=== PATIENT | male | born 1930 | race Caucasian/White ===

== ENCOUNTER 2016-10-30 21:23 | Observation (INO) | payer OTHER ==
--- NOTE | 2016-10-30 21:35 | CPEKG ---
Heart Rate: 76 RR Interval: 789 P-R Interval: 212 QRSD Interval: 156 QT Interval: 424 QTC Interval: 477 P [place]: 53 QRS [place]: -79 T Wave [place]: 91 EKG Severity - ABNORMAL ECG - EKG Impression: ATRIAL-VENTRICULAR DUAL-PACED COMPLEXES Electronically Signed By: Taiwo Houser 30-Oct-2016 21:35:19
--- NOTE | 2016-10-30 21:35 | EDPHY ---
H & P HPI/ROS: CHIEF COMPLAINT: Chest pain HISTORY OF PRESENT ILLNESS: The patient is an 86-year-old man with history of pacemaker placement and PE on Xarelto who comes to the emergency department by ambulance complaining of midsternal chest tightness that began while he was watching the [employer] game. He denies nausea vomiting although EMS states that he was dry heaving. No diaphoresis. No lightheadedness. No recent fevers or infections. Pain does not radiate. REVIEW OF SYSTEMS: Constitutional: denies: chills, fever, recent illness, recent injury EENTM: denies: blurred vision, double vision, nose congestion Respiratory: denies: cough, shortness of breath Cardiac: See HPI Gastrointestinal/Abdominal: denies: abdominal pain, diarrhea, nausea, vomiting, blood streaked stools Genitourinary: denies: dysuria, frequency, hematuria, pain Musculoskeletal: denies: joint pain, muscle pain Skin: denies: lesions, rash, jaundice, bruising Neurological: denies: headache, numbness, paresthesia, tingling, dizziness, weakness Hematologic/Lymphatic: denies: blood clots, easy bleeding, easy bruising Immunologic/allergic: denies: HIV/AIDS, transplant EXAM: GENERAL: Well-appearing, overweight and in no acute distress. HEAD: Atraumatic, normocephalic. EYES: Pupils equal round and reactive to light, extraocular movements intact, sclera anicteric, conjunctiva are normal. ENT: TMs normal, nares patent, oropharynx clear without exudates. Moist mucous membranes. NECK: Normal range of motion, supple without lymphadenopathy or JVD. LUNGS: Breath sounds clear to auscultation bilaterally and equal. No wheezes rales or rhonchi. HEART: Regular rate and rhythm without murmurs, rubs or gallops. ABDOMEN: Soft, nontender, normoactive bowel sounds. No guarding, no rebound. No masses appreciated. BACK: No CVA tenderness, no spinal tenderness, step-offs or deformities EXTREMITIES: Normal range of motion, no pitting or edema. No clubbing or cyanosis. NEUROLOGICAL: Cranial nerves II through XII grossly intact. Normal speech, normal gait. 5/5 strength, normal movement in all extremities, normal sensation PSYCH: Normal mood, normal affect. SKIN: Warm, dry, normal turgor, no visible rashes or lesions. Source: Patient Exam Limitations: No limitations - Medical/Surgical History Hx Asthma: No Hx Chronic Respiratory Disease: No Hx Diabetes: No Hx Cardiac Disease: No Hx Renal Disease: No - Family History Significant Family History: No pertinent family hx - Social History Smoking Status: Former smoker Alcohol Use: Sober Drug Use: None Constitutional: Initial Vital Signs Temperature (C) 36.6 C 10/30/16 21:47 Heart Rate 85 10/30/16 21:47 Respiratory Rate 20 10/30/16 21:47 Blood Pressure 121/58 H 10/30/16 21:47 O2 Sat (%) 90 L 10/30/16 21:47 O2 Delivery Mode Nasal Cannula O2 (L/minute) 2 Allergies/Adverse Reactions: banana Allergy (Verified 10/30/16 21:47) cucumber Allergy (Verified 10/30/16 21:47) Home Medications: Medication Instructions Recorded Lovastatin 40 mg PO DAILY 10/31/16 Multivitamins [Multivitamin (*)] 1 each PO DAILY 10/31/16 Rivaroxaban [Xarelto 10mg (*)] 20 mg PO DAILY 10/31/16 Medical Decision Making - Diagnostics EKG Interpretation: An EKG obtained and was read and documented in trace view. Please see trace view for full reading and report. AV paced An EKG obtained and was read and documented in trace view. Please see trace view for full reading and report. AV paced ED Course/Re-evaluation: 10:40 p.m. the patient continues to have chest pain despite nitroglycerin and aspirin I will treat with morphine. We will obtain a repeat EKG. Will admit to the hospital service. We discussed the lab work and CT which thus far reassuring. Family agrees with this plan. 10:50 p.m. I discussed the case with Dr. Erma Nj who will admit the medical service. She requests we consult Cardiology. 10:55 p.m. I discussed the case with Dr. Jackie Redmond who will consult. Differential Diagnosis: Partial list of the Differential diagnosis considered include but were not limited to; acute coronary disease, GERD, reflux, peptic ulcer disease and although unlikely based on the history and physical exam, I also considered arrhythmia, pneumothorax, pneumonia, PE, dissection. - Data Points Laboratory Results: Laboratory Results 10/30/16 21:35 10/30/16 21:35 Medications Given: Discontinued Medications Al Hydroxide/Mg Hydroxide (Maalox Susp) 30 ml PO EDNOW ONE Stop: 10/31/16 00:08 Last Admin: 10/31/16 00:09 Dose: 30 ml Aspirin Buffered (Aspirin Ec) 81 mg PO DAILY [facility] Stop: 04/29/17 08:59 Last Admin: 10/31/16 12:03 Dose: 81 mg Calcium Carbonate (Tums) 1,000 mg PO ONCE ONE Stop: 10/31/16 06:46 Last Admin: 10/31/16 06:36 Dose: 1,000 mg Ketorolac Tromethamine (Toradol) 15 mg IVP ONCE ONE Stop: 10/30/16 23:32 Last Admin: 10/31/16 00:45 Dose: 15 mg Lidocaine (Lidocaine 2% Viscous) 15 ml PO EDNOW ONE Stop: 10/31/16 00:08 Last Admin: 10/31/16 00:09 Dose: 15 ml Lorazepam (Ativan Injection) 0.5 mg IVP ONCE ONE Stop: 10/30/16 23:32 Last Admin: 10/31/16 00:45 Dose: 0.5 mg Morphine Sulfate (Morphine) 4 mg IVP EDNOW ONE Stop: 10/30/16 22:41 Last Admin: 10/30/16 22:46 Dose: 4 mg Nicotine (Nicoderm Cq) 7 mg TD DAILY [facility] Stop: 04/29/17 08:59 Last Admin: 10/31/16 12:03 Dose: Not Given Departure - Departure Disposition: [facility] Clinical Impression: Chest pain Qualifiers: Chest pain type: unspecified Qualified Code(s): R07.9 - Chest pain, unspecified Condition: Fair
[2016-10-30 21:46] LABS: % IMMATURE GRANULYOCYTES 0.2 % (0.0-1.1); ABSOLUTE IMMATURE GRANULOCYTES 0.01 10^3/uL (0.00-0.10); ADD DIFF? NO; ADD MORPH? NO; ADD SCAN? NO; ATYPICAL LYMPHOCYTE FLAG 10 (0-99); FRAGMENT RBC FLAG 0 (0-99); HEMOGLOBIN 16.5 g/dL (13.7-17.5); LEFT SHIFT FLG 0 (0-99); LIPEMIA HEMOLYSIS FLAG 90 (0-99); MEAN CELL HEMOGLOBIN 38.6 pg (27.9-34.1); MEAN CELL HEMOGLOBIN CONCENTR. 36.7 g/dL (32.4-36.7); MEAN CELL VOLUME 105.4 fL (81.5-99.8); MEAN PLATELET VOLUME 11.4 fL (8.7-11.7); PLATELET CLUMPS FLAG 10 (0-99); PLATELET COUNT 154 10^3/uL (150-400); RED BLOOD CELL COUNT 4.27 10^6/uL (4.40-6.38); RED CELL DISTRIBUTION WIDTH 12.4 % (11.5-15.2)
[2016-10-30] MEDS ORDERED: IOPAMIDOL (ISOVUE 370) 100 ML BTL IV ONE (21:51)
[2016-10-30 21:53] LABS: APTT 31.3 SEC (23.0-38.0); INR 1.35 (0.83-1.16); PROTIME(PATIENT) 16.7 SEC (12.0-15.0)
[2016-10-30 21:55] LABS: ALANINE AMINOTRANSFERASE 31 IU/L (21-72); ALBUMIN 4.3 g/dL (3.5-5.0); ALKALINE PHOSPHATASE 84 IU/L (38-126); ANION GAP 13 mEq/L (8-16); ASPARTATE AMINOTRANSFERASE 24 IU/L (17-59); BILIRUBIN,TOTAL 0.5 mg/dL (0.1-1.4); BILIRUBIN-CONJUGATED 0.3 mg/dL (0.0-0.5); BILIRUBIN-UNCONJUGATED 0.2 mg/dL (0.0-1.1); CALCIUM 10.2 mg/dL (8.5-10.4); CARBON DIOXIDE 23 mEq/l (22-31); CHLORIDE 101 mEq/L (97-110); CREATININE 1.1 mg/dL (0.7-1.3); GLOMERULAR FILTRATION RATE > 60; GLUCOSE 130 mg/dL (70-100); POTASSIUM 4.2 mEq/L (3.5-5.2); SODIUM 137 mEq/L (134-144); TOTAL PROTEIN 7.2 g/dL (6.3-8.2)
[2016-10-30 22:06] LABS: TROPONIN I 0.019 ng/mL (0.000-0.034)
--- NOTE | 2016-10-30 22:57 | CPEKG ---
Heart Rate: 62 RR Interval: 968 P-R Interval: 203 QRSD Interval: 152 QT Interval: 464 QTC Interval: 472 P [place]: 0 QRS [place]: -80 T Wave [place]: 90 EKG Severity - ABNORMAL ECG - EKG Impression: ATRIAL-VENTRICULAR DUAL-PACED COMPLEXES Electronically Signed By: Taiwo Houser 30-Oct-2016 23:05:59
[2016-10-30] MEDS ORDERED: KETOROLAC 15 MG/1 ML SDV IVP ONE (23:31)
[2016-10-30] MEDS ORDERED: LORazepam 2 MG/ML INJ IVP ONE (23:31)
[2016-10-30] MEDS ORDERED: KETOROLAC 30 MG/1 ML SDV IVP PRN (23:33)
[2016-10-30] MEDS ORDERED: LORazepam 0.5 MG TAB PO PRN (23:33)
[2016-10-30] MEDS ORDERED: oxyCODONE IR 5 MG TAB PO PRN (23:33)
[2016-10-30] MEDS ORDERED: HYDROmorphONE/DILAUDID 1 MG/ML SYR IVP PRN (23:33)
[2016-10-30] MEDS ORDERED: ACETAMINOPHEN 325 MG TAB PO PRN (23:33)
[2016-10-30] MEDS ORDERED: ONDANSETRON 4 MG/2 ML VIAL IVP PRN (23:33)
[2016-10-31] MEDS ORDERED: LIDOCAINE 2% VISCOUS 15 ML UDCUP ONE (00:04)
[2016-10-31] MEDS ORDERED: MAG HYDROX/AL HYDROX/SIMETH 30 ML UDCUP ONE (00:04)
[2016-10-31] MEDS ORDERED: MAG HYDROX/AL HYDROX/SIMETH 30 ML UDCUP PO ONE (00:07)
[2016-10-31] MEDS ORDERED: LIDOCAINE 2% VISCOUS 15 ML UDCUP PO ONE (00:07)
--- NOTE | 2016-10-31 00:17 | GHP ---
[f rep st] HISTORY AND PHYSICAL DATE OF ADMISSION: 10/30/2016 CHIEF COMPLAINT: Chest pain. HISTORY: The patient is an 86-year-old male who comes in with acute onset of chest pain that starte d while he was watching the [employer] game. He was sitting on the couch and approximately 7 p.m., had acute onset of 9/10 chest pain. Onset was sudden, and the pain has persisted at that level since t hat time. Nothing has made the pain better, not even IV morphine. He got nitroglycerin en route wi thout any relief. The pain is substernal. It gets better when he rubs on it. Nonpleuritic. Richelle r with a deep breath. No radiation. He had a very similar pain 6 months ago and went to the emergency room at the [facility] . They did not admit him. They gave him some Ativan in the emergency room and felt that his chest pain was due to panic, and no stress test has ever been performed. PAST MEDICAL HISTORY: 1. Pacemaker. 2. Pulmonary embolus. PAST SURGICAL HISTORY: 1. Rotator cuff. 2. Bilateral total knee arthroplasty. MEDICATIONS: Please see computer record for full detailed list. ALLERGIES: No known drug allergies. SOCIAL HISTORY: He is a smoker for 70 years although smokes lightly, only 5 cigarettes per day. On e beer every 2 days. He lives alone. REVIEW OF SYSTEMS: Complete review of systems obtained. Review of systems is negative on constitut ional, HEENT, GI, pulmonary, vascular, , hematology, skin, muscular, endocrine, psych except for p ertinent positives and negatives as noted in HPI. FAMILY HISTORY: Reviewed, noncontributory to presenting complaint. PHYSICAL EXAMINATION: GENERAL: Well-developed, well-nourished male, in no distress. VITAL SIGNS: Temperature is 36.6, pulse 85, blood pressure 121/58, saturating 98% on room air. HEENT: Eyes: N ormal conjunctivae, pupils reactive to light. ENT: Normal ears and nose. Hearing intact. Normal teeth. Oropharynx moist. NECK: Trachea midline. No thyromegaly. CHEST: Normal respiratory effo rt. Lungs: Clear to auscultation bilaterally. CARDIOVASCULAR: Regular rhythm. No murmur. No ex tremity edema. ABDOMEN: Soft, nontender. No hepatosplenomegaly. SKIN: Warm, dry, intact. No ra sh. MUSCULOSKELETAL: No cyanosis or clubbing. Strength 5/5, upper and lower extremities. NEUROLO GIC: Cranial nerves intact. Normal sensation to light touch. PSYCH: Alert and oriented x3. Norm al mood and affect. Normal judgment and insight. Normal memory. LABORATORY DATA: White count 5.3, hematocrit 45.0, platelets 154. Sodium 137, potassium 4.2, chlor dc 101, bicarb 23, BUN 17, creatinine 1.1, glucose 130. LFTs are negative. Troponins negative. I NR is 1.35. IMAGING: EKG viewed by me. My personal interpretation is paced rhythm. CT angiogram of the chest was negative for PE or dissection. This case was discussed with Dr. Houser in the emergency room. He has notified Cardiology regardin g this patient, given the fact that he is not chest pain-free. Cardiology is aware of his current s tatus. ASSESSMENT/PLAN: 1. Chest pain. This is atypical but persistent. Given the recurrent nature of this chest pain, th e fact that 6 months ago it turned out to be nothing of concern is reassuring. We will therefore tr eat for possible anxiety or musculoskeletal component with a small dose of 0.5 mg of IV Ativan, and a dose of IV Toradol tonight to see if we get him chest pain-free through the evening. Will follow serial troponins. If his troponins remained negative, then a stress test in the morning. If his ch est pain truly does remain unrelenting throughout the evening, early cardiac catheterization could b e considered. However, my suspicion that this is acute myocardial infarction at this point, is rela tively low. 2. History of pulmonary embolus. We will resume his Xarelto once the medication reconciliation is complete. 3. Pacemaker. Unfortunately, this makes his EKG uninterpretable regarding ischemia. He will be mo nitored on telemetry. 4. Tobacco dependence. Will prescribe a nicotine patch. CODE STATUS: DNR. ADMISSION STATUS: Will admit to observation. Anticipate discharge tomorrow if cardiac etiology rul ed out. DVT prophylaxis: Resume Xarelto once medication reconciliation complete. /[id number]/MODL
[2016-10-31 05:46] VITALS: O2SAT 97
[2016-10-31] MEDS ORDERED: CALCIUM CARBONATE 500 MG CHEWABLE TAB PO ONE ×2 (06:05→06:45)
[2016-10-31 06:46] LABS: CHOLESTEROL 141 mg/dL (140-220); CHOLESTEROL/HDL RATIO 3.92 RATIO (1.00-4.97); HIGH DENSITY LIPOPROTEIN 36 mg/dL (40-65); LDL/HDL RATIO 1.81 RATIO (1.00-3.64); LOW DENSITY LIPOPROTEIN 65 mg/dL (80-100); NON-HIGH DENSITY LIPOPROTEIN 105 mg/dL (90-129); TRIGLYCERIDE 202 mg/dL (40-150); VERY LOW DENSITY LIPOPROTEINS 40 mg/dL (8-25)
[2016-10-31 06:58] LABS: TROPONIN I 0.029 ng/mL (0.000-0.034)
[2016-10-31 08:16] VITALS: TEMP 97.6
[2016-10-31] MEDS ORDERED: NICOTINE 7 MG/24 HR PATCH TD SCH (09:00)
[2016-10-31] MEDS ORDERED: ASPIRIN EC 81 MG TAB PO SCH (09:00)
[2016-10-31] MEDS ORDERED: REGADENOSON 0.4 MG/5 ML SYR IVP ONE (09:34)
--- NOTE | 2016-10-31 10:49 | CPR ---
[f rep st] NONINVASIVE CARDIAC PROCEDURE REPORT DATE OF PROCEDURE: 10/31/2016 PROCEDURE: Lexiscan nuclear stress test. REASON FOR TEST: Chest pain. No past history of cardiac disease. RESTING PORTION: Resting EKG shows an AV-paced rhythm. No abnormalities noted. Resting blood pres sure 120/80, resting heart rate 63, oxygen saturation 95%. He is asymptomatic. STRESS PORTION: Lexiscan was injected rapidly, followed by saline flush. Cardiolite was then injec david, followed by saline flush. He remained asymptomatic throughout the stress portion. His blood p ressure was 122/74, heart rate peak 74, oxygen saturation 95%. No EKG changes. RECOVERY: He spontaneously recovered with blood pressure returning to 120/72, heart rate 74, oxygen saturation 95%. No EKG changes noted. At this time, he is stable for nuclear imaging. /[id number]/MODL
[2016-10-31 11:07] VITALS: BP 114/61; PULSE 62; RESP 17
--- NOTE | 2016-10-31 11:47 | PDIAF ---
- Diagnosis Diagnosis: chest pain Code Status: Do Not Resuscitate - Medication Management Discharge Medications: Medications to Continue on Transfer Lovastatin 40 mg PO DAILY 10/31/16 [Last Taken 10/30/16] Multivitamins [Multivitamin (*)] 1 each PO DAILY 10/31/16 [Last Taken 10/30/16] Rivaroxaban [Xarelto 10mg (*)] 20 mg PO DAILY 10/31/16 [Last Taken 10/30/16] Discharge Medications: Refer to the Discharge Home Medication list for PRN reason. - Orders Services needed: Registered Nurse Diet Recommendation: cardiac -low fat low salt Diet Texture: Regular Texture Diet - Follow Up Care Current Providers and Referrals: Patient,NotPresent [Unknown] - As per Instructions Chico Blanco MD [Medical Doctor] -
--- NOTE | 2016-10-31 12:12 | ASMTCASEMG ---
Living Arrangements What is your living Answers: Alone arrangement? Who do you live with? Type Of Residence What kind of residence do Answers: House you live in? Discharge Plan Comments Coordination Status Comments Notes: Pt is a 86 y/o male admitted w/ chest pain. Pt had a similiar presentation 6 months ago and presented at [facility]. It turns out that pts chest pain was due to panic/anxiety. Met w/ pt regarding discharge plans. Pt lives at [facility]. Pt does not have any needs at this time. Pt will call [employer] for transport home. Discussed w/ RN. CM available for changes needs. Date Signed: 10/31/2016 12:11 PM Electronically Signed By:Kaylee Crouch
[2016-10-31] MEDS ORDERED: RIVAROXABAN 10 MG TAB PO SCH (13:15)
--- NOTE | 2016-10-31 16:59 | ASDISCHSUM ---
Discharge Information Plan Status:Home with No Needs Medically Cleared to Leave:10/31/2016 Discharge Date:10/31/2016 01:40 PM CM D/C Disposition:Home, Routine, Self-Care ADT D/C Disposition:Care Home Facility Projected Discharge Date:10/31/2016 12:00 AM Transportation at D/C:[employer] Discharge Delay Reason: Follow-Up Date:10/31/2016 12:00 AM Discharge Slot: Final Diagnosis: Placement Information Patient Contact Information Contact Name:JOAN Relationship:Daughter Address:[address] Work Phone: City:[facility] Phone: [facility]/Zip Code:[place] [address] Email: Financial Information Financial Class:Medicare Advantage Plans Primary Plan Desc:[facility] ADVANTAGE PLANS Primary Plan Number:[id number] Secondary Plan Desc: Secondary Plan Number: Assessment Information [facility] Initial CM Assessment Living Arrangements What is your living Answers: Alone arrangement? Who do you live with? Type Of Residence What kind of residence do Answers: House you live in? Discharge Plan Comments Coordination Status Comments Notes: Pt is a 86 y/o male admitted w/ chest pain. Pt had a similiar presentation 6 months ago and presented at [facility]. It turns out that pts chest pain was due to panic/anxiety. Met w/ pt regarding discharge plans. Pt lives at [facility]. Pt does not have any needs at this time. Pt will call [employer] for transport home. Discussed w/ RN. CM available for changes needs. Date Signed: 10/31/2016 12:11 PM Electronically Signed By:Kaylee Crouch Intervention Information Intervention Type:CARMEN-Signed Date of Service:10/31/2016 11:39 AM Patient Type:Observation Staff Member:Nelsy Fagan Hours: Discipline: Severity: Comment:
--- NOTE | 2016-10-31 17:24 | GDS ---
[f rep st] DISCHARGE SUMMARY DISCHARGE DIAGNOSES: 1. 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 2. History of pulmonary embolus on Xarelto. 3. History of permanent pacemaker. 4. Tobacco dependency. HISTORY OF PRESENT ILLNESS: An 86-year-old male presenting with chest pain while watching the [employer] game. For details of patient's initial presentation, please see the History and Physical dated 0 10/30/2016. CONSULTATIVE SERVICES: Cardiology. PROCEDURES: On 10/30/2016, patient had a CT PE, shows no evidence of pulmonary embolism or aortic d issection. On 10/31/2016, patient had a Lexiscan stress test that was negative for any inducible is chemia. Ejection fraction estimated at 59% with hypokinesis of the inferior left ventricular wall. HOSPITAL COURSE BY ISSUE: 1. Chest pain. Patient was kept on telemetry, ruled out with serial troponins, EKGs, and went for cardiac stress testing. No inducible ischemia was identified. It does appear there is an old infar ction in the inferior left ventricular wall. The patient will be followed in the outpatient setting by Cardiology for long-term management of his presumed coronary artery disease. He will be continu ed on oral statin therapy and his Xarelto anticoagulation. 2. History of pulmonary embolism. Patient will be continued on his Xarelto at home dosing. MEDICATIONS AT THE TIME OF DISPOSITION: please reference med rec printed on 10/31/2016. Of note, n o changes were made to the patient's home medication list. FOLLOWUP APPOINTMENTS: The patient was provided an appointment at [facility] on 11/[address] Saima Lynch at 10:45 a.m. TIME SPENT: I spent greater than 30 minutes in the planning and coordination of this discharge. /[id number]/MODL
[2016-11-01] MEDS ORDERED: PRAVASTATIN SODIUM 40 MG TAB PO SCH (09:00)
[2016-11-01] MEDS ORDERED: MULTIVITAMINS 1 EACH TAB PO SCH (09:00)
== END 2016-10-31 13:40 ==
LOC: EDUNIT# → F2W 10-31 00:17
PROVIDERS: ADMIT Internal Medicine; ATTEND Internal Medicine
DX: R07.89 Other chest pain (principal); I25.10 Atherosclerotic heart disease of native coronary artery without angina pectoris; Z95.0 Presence of cardiac pacemaker; Z86.711 Personal history of pulmonary embolism; F17.200 Nicotine dependence, unspecified, uncomplicated
CPT/HCPCS: 71020; 71275; 78452; 93005; 93017; A9500; G0378; J1885; J2060; J2785; Q9967; 82947-QW; 96374